=== PATIENT | female | born 1975 | race Caucasian/White ===

== ENCOUNTER 2019-10-02 08:46 | Emergency (ER) | payer OTHER, SELFPAY ==
[~2019-10-02] VITALS: Ht 167.6 cm; Wt 57.8 kg
[2019-10-02 08:46] VITALS: BP 135/60
[2019-10-02] MEDS ORDERED: LIDOCAINE 5% (LIDODERM) PATCH TD ONE (09:30)
[2019-10-02 09:45] LABS: BASO # 0.1 10^3/uL (0.0-0.2); BASO % 0.6 % (0.0-1.0); EOS # 0.2 10^3/uL (0.0-0.5); EOS % 2.2 % (0.0-3.0); HEMATOCRIT 48.4 % (36.0-47.0); HEMOGLOBIN 16.1 g/dl (12.0-15.5); LYMPH # 1.7 10^3/uL (1.5-5.0); LYMPH % 20.4 % (24.0-44.0); MEAN CORPUSCULAR HEMOGLOBIN 32.7 pg (27.0-33.0); MEAN CORPUSCULAR HGB CONC 33.3 g/dl (32.0-36.5); MEAN CORPUSCULAR VOLUME 98.4 fl (80.0-96.0); MONO # 0.6 10^3/uL (0.0-0.8); MONO % 7.4 % (0.0-5.0); NEUTROPHILS # 5.6 10^3/uL (1.5-8.5); PLATELET COUNT, AUTOMATED 227 10^3/uL (150-450); RED BLOOD COUNT 4.92 10^6/uL (4.00-5.40); WHITE BLOOD COUNT 8.1 10^3/uL (4.0-10.0)
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
[2019-10-02 10:12] LABS: CK-MB VALUE MASS < 1.0 NG/ML (<3.6); CPK CREATINE PHOSPHOKINASE 60 U/L (26-192); MB/CK RELATIVE INDEX 1.67 (< OR =4); TROPONIN I < 0.02 NG/ML (< 0.10)
[2019-10-02] MEDS ORDERED: ISOVUE-370 76% 100ML VIAL As Ordered ONE (11:07)
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
[2019-10-02] MEDS ORDERED: **NOTE PATIENT COMMENT** MISC XX ONE (21:00)
== END 2019-10-02 13:07 | disposition home or self-care (01) ==
LOC: M ED 08:46
DX: S30.0XXA Contusion of lower back and pelvis, initial encounter (principal); S22.32XA Fracture of one rib, left side, initial encounter for closed fracture; V49.49XA Driver injured in collision with other motor vehicles in traffic accident, initial encounter; Y92.410 Unspecified street and highway as the place of occurrence of the external cause; N80.9 Endometriosis, unspecified; F17.210 Nicotine dependence, cigarettes, uncomplicated; Z88.0 Allergy status to penicillin; Z88.1 Allergy status to other antibiotic agents; Z88.2 Allergy status to sulfonamides; Z91.040 Latex allergy status
CPT/HCPCS: 36415; 71046; 71120; 74177; 80047; 81001; 82550; 82553; 84484; 85025; 99284; Q9967

== ENCOUNTER 2021-12-08 17:20 | Emergency (ER) | payer OTHER ==
[~2021-12-08] VITALS: Ht 167.6 cm; Wt 60.0 kg
[2021-12-08] MEDS ORDERED: BOOSTRIX/ADACEL VACCINE (DIPHTH/PERTUSS/ACELL/TETANUS) 0.5ML SYR IM ONE (21:35)
[2021-12-08 21:48] VITALS: BP 126/74
== END 2021-12-08 21:49 | disposition home or self-care (01) ==
LOC: M ED 17:20
DX: S63.601A Unspecified sprain of right thumb, initial encounter (principal); S00.31XA Abrasion of nose, initial encounter; W20.8XXA Other cause of strike by thrown, projected or falling object, initial encounter; Y92.009 Unspecified place in unspecified non-institutional (private) residence as the place of occurrence of the external cause; F17.200 Nicotine dependence, unspecified, uncomplicated; Z23 Encounter for immunization; Z88.0 Allergy status to penicillin; Z88.1 Allergy status to other antibiotic agents; Z88.2 Allergy status to sulfonamides